=== PATIENT | male | born 1995 | race Two or more races ===

== ENCOUNTER 2017-04-29 00:55 | Emergency (ER) | payer MEDICAID ==
--- NOTE | 2017-04-29 01:04 | EDPHY ---
H & P HPI/ROS: HPI CHIEF COMPLAINT: Alcohol Intoxication HISTORY OF PRESENT ILLNESS: Patient is a 21-year-old male, presents emergency room by EMS after he fell down 2 stairs with positive LOC with strike this is reported by his friends. He had a large amount of alcohol this evening. States 7 to 8 shots of liquor. He presents emergency room highly intoxicated. He is lifting giggling. He states that he did his head does not have significant pain. Denies any other areas of injury. He also states that he smoked marijuana this evening. Past Medical History: Significant for hypertension takes lisinopril Past Surgical History: Noncontributory Social History: Large amount of alcohol this evening. Marijuana as well. Denies other illicit drugs. Goes to [facility]. Visiting friends in [place]. Family History: Noncontributory ROS REVIEW OF SYSTEMS: A comprehensive 10 point review of systems is otherwise negative aside from elements mentioned in the history of present illness. Exam Constitutional Intoxicated, triage nursing summary reviewed, vital signs reviewed, Sleepy, smells of alcohol Eyes normal conjunctivae and sclera, horizontal beating nystagmus consistent acute alcohol intoxication, otherwise pupils equal and react to light HENT normal inspection, atraumatic, moist mucus membranes, no epistaxis, neck supple/ no meningismus, no raccoon eyes. Respiratory clear to auscultation bilaterally, normal breath sounds, no respiratory distress, no wheezing. Cardiovascular rate normal, regular rhythm, no murmur, no edema, distal pulses normal. Gastrointestinal soft, non-tender, no rebound, no guarding, normal bowel sounds, no distension, no pulsatile mass. Genitourinary no CVA tenderness. Musculoskeletal no midline vertebral tenderness, full range of motion, no calf swelling, no tenderness of extremities, no meningismus, good pulses, neurovascularly intact. Skin pink, warm, & dry, no rash, skin atraumatic. Neurologic sleepy, intoxicated with alcohol,, alert and oriented x 3, AAOx3, moves all 4 extremities equally, motor intact, sensory intact, CN II-XII intact , , normal vision, normal speech. Psychiatric normal mood/affect. Heme/Lymph/Immune no lymphadenopathy. Differential Diagnosis: Includes but is not limited to in a particular order acute alcohol intoxication, alcohol abuse, dehydration, electrolyte abnormality , nausea vomiting from acute alcohol intoxication Medical Decision Making: Plan for this patient CT head without contrast rule out significant intracranial bleed or trauma. Breath alcohol. Re-evaluate. Re-evaluation: Alcohol level 0.169 CT scan head without contrast negative for acute traumatic injury. No fracture no bleed. Patient ambulated well to the bathroom with a stable gait. Clinically sober and safe for discharge he is on a [facility] hold. Will d/c to the [facility]. Source: Patient, EMS Constitutional: Initial Vital Signs Temperature (C) 36.5 C 04/29/17 00:55 Heart Rate 101 H 04/29/17 00:55 Respiratory Rate 16 04/29/17 00:55 Blood Pressure 142/100 H 04/29/17 00:55 O2 Sat (%) 98 04/29/17 00:55 O2 Delivery Mode Room Air Allergies/Adverse Reactions: No Known Allergies Allergy (Unverified 04/29/17 01:06) Home Medications: Medication Instructions Recorded Lisinopril 04/29/17 Departure - Departure Disposition: Home, Routine, Self-Care Clinical Impression: Alcoholic intoxication Qualifiers: Complication of substance-induced condition: uncomplicated Qualified Code(s): F10.920 - Alcohol use, unspecified with intoxication, uncomplicated Condition: Good Instructions: Alcohol Intoxication (ED), Abuse of Alcohol (ED) Referrals: NONE *PRIMARY CARE P,. [Primary Care Provider] - As per Instructions
[2017-04-29 01:11] VITALS: RESP 16
[2017-04-29 01:45] VITALS: BP 121/74; PULSE 74; TEMP 97.9; O2SAT 96
== END 2017-04-29 01:45 | disposition home or self-care (01) ==
DX: F10.120 Alcohol abuse with intoxication, uncomplicated (principal); I10 Essential (primary) hypertension